=== PATIENT | female | born 1955 | race Two or more races ===

== ENCOUNTER 2024-10-27 21:49 | Inpatient (IN) | payer MEDICARE, OTHER ==
[~2024-10-27] VITALS: Ht 175.3 cm; Wt 83.5 kg
[2024-10-27 22:32] LABS: PLATELET COUNT (AUTO) 440 K/uL (150-450); RED BLOOD CELL COUNT(AUTO) 4.43 MIL/uL (4.0-5.2); RED CELL DISTRIBUTION WIDTH 13.8 % (11.5-15.0); WHITE BLOOD COUNT (AUTO) 7.5 K/uL (4.3-11.0)
[2024-10-27 22:44] LABS: AMPHETAMINE, URINE NEGATIVE (NEGATIVE); BARBITURATE, URINE NEGATIVE (NEGATIVE); BENZODIAZEPINE, URINE NEGATIVE (NEGATIVE); CANNABINOID, URINE NEGATIVE (NEGATIVE); COCCAINE, URINE NEGATIVE (NEGATIVE); OPIATE, URINE NEGATIVE (NEGATIVE)
[2024-10-27 22:44] LABS: CALCIUM, SERUM 9.1 mg/dL (8.5-10.1); CREATININE 1.0 mg/dL (0.6-1.3); SODIUM SERUM 131 mmol/L (136-145); UREA NITROGEN, BLOOD 18 mg/dL (7-18)
[2024-10-27 22:50] LABS: ALCOHOL, BLOOD < 3 mg/dL (0-10); ASPARTATE AMINOTRANSFERASE 82 U/L (15-37); TOTAL PROTEIN, SERUM 7.6 g/dL (6.4-8.2)
[2024-10-27 23:06] LABS: APPEARANCE,URINE CLEAR (CLEAR); BLOOD, URINE NEGATIVE Ery/uL (NEGATIVE); LEUKOCYTE ESTERASE ,URINE 1+ (NEGATIVE); NITRITE, URINE NEGATIVE (NEGATIVE); UGLUCOSE NEGATIVE (NEGATIVE)
[2024-10-27 23:56] LABS: ADD URINE CULTURE YES
[2024-10-27 23:57] LABS: SQUAMOUS EPITHELIAL CELL,UR FEW /HPF (None Seen)
[2024-10-28] MEDS ORDERED: MULT-365 PO (01:05)
[2024-10-28] MEDS ORDERED: BENZ1TAB7 PO (01:05)
[2024-10-28] MEDS ORDERED: SENN8.6T19 PO (01:05)
[2024-10-28] MEDS ORDERED: LEVO50TA8 PO (01:05)
[2024-10-28] MEDS ORDERED: IBUP-1955 PO (01:05)
[2024-10-28 02:23] VITALS: O2SAT 96
[2024-10-28 03:35] VITALS: BP 146/69; TEMP 98.2
[2024-10-28] MEDS ORDERED: ACETAMINOPHEN 325 MG TABLET PO PRN (04:00)
[2024-10-28] MEDS ORDERED: LORAZEPAM 0.5 MG TABLET PO PRN (04:00)
[2024-10-28] MEDS ORDERED: ZOLPIDEM TARTRATE 5 MG TABLET PO PRN (04:00)
[2024-10-28] MEDS ORDERED: LORAZEPAM 1 MG TABLET PO PRN (04:00)
[2024-10-28] MEDS ORDERED: MAG HYDROX/AL HYDROX/SIMETH 30 ML UDC PO PRN (04:00)
[2024-10-28] MEDS ORDERED: MAGNESIUM HYDROXIDE 30 ML UDC PO PRN (04:00)
[2024-10-28] MEDS: BLOOD SUGAR DIAGNOSTIC 1 EACH STRIP IN ONE (04:27)
[2024-10-28 08:00] VITALS: BP 122/72; TEMP 97.8; O2SAT 96
[2024-10-28] MEDS: LEVOTHYROXINE SODIUM 50 MCG TABLET PO SCH (09:00)
[2024-10-28 16:00] VITALS: BP 114/82; TEMP 98.1; O2SAT 98
[2024-10-28] MEDS: BENZTROPINE MESYLATE (1 MG) 1 MG TABLET PO SCH (16:38)
[2024-10-28] MEDS: IBUPROFEN 600 MG TABLET PO SCH (17:02)
[2024-10-28] MEDS: SENNOSIDES 8.6 MG TABLET PO SCH (17:02)
[2024-10-29] MEDS: MULTIVIT W/MINERALS 1 TAB TABLET PO SCH (09:00)
[2024-10-29 16:00] VITALS: BP 168/111; TEMP 97.8; O2SAT 96
[2024-10-30 08:00] VITALS: BP 120/93; TEMP 97.9; O2SAT 94
[2024-10-31 16:00] VITALS: BP 116/82; TEMP 98.1; O2SAT 96
[2024-11-01 08:10] VITALS: BP 132/95; TEMP 97.8; O2SAT 96
[2024-11-01 16:00] VITALS: BP 142/85; TEMP 97.9; O2SAT 98
[2024-11-02 16:00] VITALS: BP 138/98; TEMP 98.8; O2SAT 97
[2024-11-03 00:11] VITALS: BP 126/82; TEMP 98.7
[2024-11-03 16:00] VITALS: BP 133/95; TEMP 98.4; O2SAT 98
[2024-11-03] MEDS: IBUPROFEN 600 MG TABLET PO PRN (18:15)
== END 2024-11-03 19:00 | DRG 885 ==
LOC: ER 21:52 → GPS 10-28 01:54
PROVIDERS: ADMIT Psychiatry & Neurology Psychiatry; ATTEND Internal Medicine
DX: F20.0 Paranoid schizophrenia (principal); E87.1 Hypo-osmolality and hyponatremia; F29 Unspecified psychosis not due to a substance or known physiological condition; I10 Essential (primary) hypertension; E03.9 Hypothyroidism, unspecified; F25.0 Schizoaffective disorder, bipolar type; Z88.2 Allergy status to sulfonamides; Z91.81 History of falling; Z20.822 Contact with and (suspected) exposure to COVID-19; Z73.6 Limitation of activities due to disability; M62.81 Muscle weakness (generalized); F41.9 Anxiety disorder, unspecified; C50.911 Malignant neoplasm of unspecified site of right female breast
CPT/HCPCS: 36415; 80048-TC; 80076-TC; 81001; 82962-TC; 85025-TC; 87086-TC; A6253; G0480